=== PATIENT | male | born 1995 | race Caucasian/White ===

== ENCOUNTER 2020-07-02 18:20 | Emergency (ER) | payer SELFPAY ==
[~2020-07-02] VITALS: Ht 175.3 cm; Wt 68.0 kg
[2020-07-02] MEDS: IBUPROFEN 600 MG TABLET. PO ONE (18:55)
[2020-07-02] MEDS: ACETAMINOPHEN 325 MG TABLET PO ONE (18:56)
--- NOTE | 2020-07-02 19:28 | RAD ---
EXAMINATION: XR EXAM OF ANKLE_LEFT 3V CLINICAL HISTORY: ROLLED ANKLE AND FELT POP TECHNIQUE: XR EXAM OF ANKLE_LEFT 3V Number of Images/Views: 3 COMPARISON: None FINDINGS: Joint spaces and alignment maintained. No acute fracture. Small corticated ossicle along the distal a spect of the medial malleolus, possibly related to remote trauma. No focal soft tissue swelling. IMPRESSION: No acute osseous abnormality. Electronically signed by: Juvenal Quispe DO (07/02/2020 7:25 PM) [facility]
--- NOTE | 2020-07-02 19:37 | PHYS DOC ---
Past History Past Medical History: No Pertinent History (CHARLIE HODGES APRN) Past Surgical History: No Surgical History (CHARLIE HODGES APRN) Alcohol Use: Occasionally (CHARLIE HODGES APRN) Adult General Chief Complaint Chief Complaint: ANKLE PROBLEM HPI HPI Patient is a 24-year-old male presents emergency department reporting 2 days ago he was walking his dog and stepped in a hole rolling his left ankle. Patient states he felt a pop, has been limping around on his ankle since for the past 2 days, states his friends told him is most likely broken and to come straight to the emergency department for evaluation. Patient reports he took an 800 mg Motrin yesterday which seemed to help. Patient states he has not done any other therapies to help with his pain, has not iced or Marlo wrap to his ankle. Patient denies any allergies to medications. Patient states he takes no medications at home. Patient denies any other physical complaints or physical concerns. (CHARLIE HODGES APRN) Review of Systems Review of Systems 14 body systems of review of systems have been reviewed. See HPI for pertinent positives and negative responses, otherwise all other systems are negative, nonpertinent or noncontributory. (CHARLIE HODGES APRN) Current Medications Current Medications Current Medications Medications (Trade) Dose Ordered Sig/Dayanna Start Time Stop Time Status Last Admin Dose Admin Acetaminophen (Tylenol) 650 mg 1X ONCE 07/02/20 18:45 07/02/20 18:46 DC 07/02/20 18:56 650 MG Ibuprofen (Motrin) 600 mg 1X ONCE 07/02/20 18:45 07/02/20 18:46 DC 07/02/20 18:55 600 MG (CHARLIE HODGES APRN) Allergies Allergies Allergies Coded Allergies Type Severity Reaction Last Updated Verified No Known Drug Allergies 07/02/20 No (CHARLIE HODGES APRN) Physical Exam Physical Exam Constitutional: Well developed, well nourished, no acute distress, non-toxic appearance. 24-year-old male no apparent distress. HENT: Normocephalic, atraumatic, bilateral external ears normal, oropharynx moist, no oral exudates, nose normal. Eyes: PERRLA, EOMI, conjunctiva normal, no discharge. Neck: Normal range of motion, no tenderness, supple, no stridor. Cardiovascular:Heart rate regular rhythm, no murmur Lungs & Thorax: Bilateral breath sounds clear to auscultation Abdomen: Bowel sounds normal, soft, no tenderness, no masses, no pulsatile masses. Skin: Warm, dry, no erythema, no rash. Back: No tenderness, no CVA tenderness. Extremities: No tenderness, no cyanosis, no clubbing, ROM intact, no edema. Except for left ankle, patient complains of pain to left medial aspect, no swelling, no bruising, no crepitus appreciated, full AROM/PROM, distal cap refill less than 2 seconds, 2+ dorsalis pedis/posterior tibial pulse. Neurologic: Alert and oriented X 3, normal motor function, normal sensory function, no focal deficits noted. Psychologic: Affect normal, judgement normal, mood normal. (CHARLIE HODGES APRN) Current Patient Data Vital Signs Vital Signs Date Time Temp Pulse Resp B/P (MAP) Pulse Ox O2 Delivery O2 Flow Rate FiO2 07/02/20 18:32 98.2 76 16 104/88 (93) Room Air 98.0 (CHARLIE HODGES APRN) EKG EKG [] (CHARLIE HODGES APRN) Radiology/Procedures Radiology/Procedures PATIENT: AP CHOI ACCOUNT: [id number] : 1995 LOCATION: ER AGE: 24 SEX: M EXAM STATUS: REG ER ORD. PHYSICIAN: CHARLIE HODGES APRN REASON: ROLLED ANKLE AND FELT POP PROCEDURE: ANKLE LEFT 3V EXAMINATION: XR EXAM OF ANKLE_LEFT 3V CLINICAL HISTORY: ROLLED ANKLE AND FELT POP TECHNIQUE: XR EXAM OF ANKLE_LEFT 3V Number of Images/Views: 3 COMPARISON: None FINDINGS: Joint spaces and alignment maintained. No acute fracture. Small corticated ossicle along the distal aspect of the medial malleolus, possibly related to remote trauma. No focal soft tissue swelling. IMPRESSION: No acute osseous abnormality. Electronically signed by: Helene Sousa DO (07/02/2020 7:25 PM) [facility] DICTATED AND SIGNED BY: HELENE SOUSA DO DATE: 07/02/201923 CC: CHARLIE HODGES APRN; ANDRIY MONTEIRO ~MTH0 0 (CHARLIE HODGES APRN) Heart Score C/O Chest Pain: No Risk Factors: Risk Factors: DM, Current or recent (<one month) smoker, HTN, HLP, family histo ry of CAD, obesity. Risk Scores: Risk Factors: DM, Current or recent (<one month) smoker, HTN, HLP, family history of CAD, obesity. (CHARLIE HODGES APRN) Course & Med Decision Making Course & Med Decision Making Pertinent Labs and Imaging studies reviewed. (See chart for details) 24-year-old male, vital signs reviewed, presents emergency department concerning left ankle pain after rolling it in a hole while walking his dog 2 days ago. Physical examination unremarkable, however related to patient's complaint of pain will x-ray left ankle. Patient given 600 mg Motrin, 650 mg Tylenol for pain. X-ray imaging negative for acute fracture, reevaluation of the patient pain down to a 1-2/10 on a 1-10 pain scale. Discussed with patient will apply ankle stirrup splint, Marlo wrap, RICE therapy. Patient gave verbal understanding of discharge home instructions, splint use, RICE therapy, follow-up with primary care for ongoing pain management, return to ER precautions and concerns. Patient was thankful had no further questions, patient was discharged home without incident. (CHARLIE HODGES APRN) Dragon Disclaimer Dragon Disclaimer This electronic medical record was generated, in whole or in part, using a voice recognition dictation system. (CHARLIE HODGES APRN) Attending Co-Sign The patient was seen and interviewed as well as examined at the bedside. The chart was reviewed. The case was discussed. Agree with the plan of care. (COLTON GARRETT DO) Departure Departure: Impression: Primary Impression: Left ankle sprain Disposition: HOME / SELF CARE / HOMELESS Condition: GOOD Referrals: ANDRIY MONTEIRO (PCP) Patient Instructions: Elastic Bandage and RICE, Splint Care-Brief Additional Instructions: You were seen in the emergency department today for left ankle pain. An x-ray was performed, there was no evidence of fracture. I am diagnosing you with a sprained ankle. Please follow RICE therapy, rest, ice, compression, elevation. The ED nurse applied an Marlo wrap and ankle stirrup splint, please use as needed for comfort over the next several days. Please follow-up with your primary care physician for ongoing pain management. Please return to the emergency department for worsening symptoms or other concerns. EMERGENCY DEPARTMENT GENERAL DISCHARGE INSTRUCTIONS Thank you for coming to [facility] (ED) today and trusting us with you care. We trust that you had a positivie experience in our Emergency Department. If you wish to speak to the department management, you may call the director at [phone]. YOUR FOLLOW UP INSTRUCTIONS ARE FOLLOWS: 1. Do you have a private Doctor? If you do not have a private doctor, please ask for a resource list of physicians or clinics that may be able to assist you with follow up care. 2. The Emergency Physician has interpreted your x-rays. The X-Ray specialist will also review them. If there is a change in the findings, you will be notified in 48 hours when at all possible. 3. A lab test or culture has been done, your results will be reviewed and you will be notified if you need a change in treatment. ADDITIONAL INSTRUCTIONS AND INFORMATION: 1. Your care today has been supervised by a physician who is specially trained in emergency care. Many problems require more than one evaluation for a complete diagnosis and treatment. We recommend that you schedule your follow up appointment as recommended to ensure complete treatment of you illness or injury. If you are unable to obtain follow up care and continue to have a problem, or if your condition worsens, we recommend that you return to the ED. 2. We are not able to safely determine your condition over the phone nor are we able to give sound medical advice over the phone. For these safety reasons, if you call for medical advice we will ask you to come to the ED for further evaluation. 3. If you have any questions regarding these discharge instructions please call the ED at [phone]. SAFETY INFORMATION: In the interest of safety, wellness, and injury prevention; we encourage you to wear your sealbelt, if you smoke; quite smoking, and we encourage family to use a protective helmet for bicycling and other sporting events that present an increased risk for head injury. IF YOUR SYMPTOMS WORSEN OR NEW SYMPTOMS DEVELOP, OR YOU HAVE CONCERNS ABOUT YOUR CONDITION; OR IF YOUR CONDITION WORSENS WHILE YOU ARE WAITING FOR YOUR FOLLOW UP APPOINTMENT; EITHER CONTACT YOUR PRIMARY CARE DOCTOR, THE PHYSICIAN WHOSE NAME AND NUMBER YOU WERE GIVEN, OR RETURN TO THE ED IMMEDIATELY. Scripts Ibuprofen (IBUPROFEN) 600 Mg Tablet 600 MG PO TID PRN for PAIN, #20 TAB 0 Refills Prov: CHARLIE HODGES APRN 07/02/20 Problem Qualifiers Primary Impression: Left ankle sprain Encounter type: initial encounter Involved ligament of ankle: unspecified ligament Qualified Codes: S93.402A - Sprain of unspecified ligament of left ankle, initial encounter CHARLIE HODGES APRN July 02, 2020 19:37 COLTON GARRETT DO July 02, 2020 23:45
[2020-07-02 20:35] VITALS: BP 132/70
[2020-07-02] MEDS ORDERED: IBUP600T16 PO (20:35)
== END 2020-07-02 20:19 | disposition home or self-care (01) ==
LOC: ER 18:20
DX: S93.402A Sprain of unspecified ligament of left ankle, initial encounter (principal); X58.XXXA Exposure to other specified factors, initial encounter; Y93.01 Activity, walking, marching and hiking; Y92.89 Other specified places as the place of occurrence of the external cause; Y99.8 Other external cause status
CPT/HCPCS: 29515; 73610; 99283-25